=== PATIENT | female | born 1970 | race Caucasian/White ===

== ENCOUNTER 2017-02-27 05:51 | Day surgery (SDC) | payer BC ==
[2017-02-27] MEDS ORDERED: Lactated Ringers 1,000 ML IV SCH (06:00)
[2017-02-27 06:23] VITALS: O2SAT 100
[2017-02-27 08:19] VITALS: BP 133/78; PULSE 69
[2017-02-27] MEDS ORDERED: Ketamine HCl 50 MG/ML IV ONE (10:00)
[2017-02-27] MEDS ORDERED: DIPRIVAN 200 MG/20 ML IV ONE (10:00)
--- NOTE | 2017-02-27 12:49 | OP ---
SURGERY DATE: 02/27/17 SURGERY TIME: 651 PREOPERATIVE DIAGNOSIS: 1. CHRONIC CONSTIPATION. POSTOPERATIVE DIAGNOSIS: 1. NORMAL COLON. PROCEDURE: 1. Colonoscopy. SURGEON: Dr. Farmer. ANESTHESIA: MAC. Medications given by the Anesthesia Department. BRIEF HISTORY: The patient is a 46 y/o WF patient who has been having problems with abdominal pain. She reports she is having chronic constipation. She was felt to need to have endoscopic evaluation. She was appraised of the risks of the procedure including the risk of perforation, phlebitis, untoward reaction to medication, bleeding, and missed lesions. The patient verbalized her understanding and desired to have the procedure performed. DESCRIPTION OF PROCEDURE: The patient was given the medications by the Anesthesia Department. She had continuous pulse oximetry, ECG monitoring, intermittent BP monitoring, and end tidal CO2 monitoring during the examination. She was placed in the left lateral decubitus position. A digital rectal examination was performed and revealed normal anal sphincter tone and no masses. The flexible Olympus pediatric colonoscope was used to intubate the rectum. A view of the colon was developed sequentially to the cecum. Upon insertion and withdrawal, including a retroflex view in the rectum, no mucosal lesions were encountered. The scope was removed from the patient who tolerated the procedure well and was sent back to OP recovery in good condition. The prep was noted to be fair to good.
== END 2017-02-27 08:20 | disposition home or self-care (01) ==
LOC: SDC 05:51
PROVIDERS: ATTEND Family Medicine
PROC: 0DJD8ZZ Inspection of Lower Intestinal Tract, Via Natural or Artificial Opening Endoscopic (ICD-10-PCS; principal; 2017-02-27)
DX: K59.00 Constipation, unspecified (principal)
CPT/HCPCS: 00810; 84703; J2704